=== PATIENT | male | born 1965 | race American Indian/Alaskan Native ===

== ENCOUNTER 2016-10-12 07:27 | Day surgery (SDC) | payer OTHER ==
[2016-07-26 11:26] VITALS: BMI 33.9
[~2016-10-12 07:27] MED LIST: ceFAZolin IV 1 gm in Dextrose 0 GM/0 ML BAG IVPB ONE
[2016-10-12] MEDS ORDERED: Lidocaine 2% w Epi 1:100,000 Inj IJ ONE (07:28)
[2016-10-12] MEDS ORDERED: EPINEPHrine 1:1000 Nasal Sol(30mL) ONE (07:28)
[2016-10-12] MEDS ORDERED: Acetaminophen-Codeine 300/30 mg Tab PO PRN (09:33)
[2016-10-12] MEDS ORDERED: Dextrose 5%/0.45% NS 1,000 ML IV SCH (09:45)
[2016-10-12] MEDS ORDERED: Lactated Ringer's 1,000 ML IV ONE (11:00)
[2016-10-12] MEDS ORDERED: Midazolam 2 MG/2 ML VIAL ONE (11:03)
[2016-10-12] MEDS ORDERED: Propofol 10 mg/ml Inj (20 ML) ONE ×3 (11:03→12:33)
[2016-10-12] MEDS ORDERED: ceFAZolin IV 2 gm in Dextrose 1 GM/50 ML BAG IVPB ONE (11:06)
[2016-10-12] MEDS ORDERED: Sodium Chloride 0.9% 1,000 ML IV ONE (12:25)
[2016-10-12] MEDS ORDERED: HYDROmorphone 0.5 mg/0.5 ml ISec IVP PRN (13:05)
[2016-10-12] MEDS ORDERED: Midazolam 2 MG/2 ML VIAL IVP ONE (13:06)
--- NOTE | 2016-10-12 14:02 | OP ---
PROCEDURE DATE: 10/12/2016 PREOPERATIVE DIAGNOSES: Deviated septum, enlarged turbinates, sinusitis, left chronic otitis media. POSTOPERATIVE DIAGNOSES: Deviated septum, enlarged turbinates, sinusitis, left chronic otitis media. PROCEDURE: Bilateral endoscopic maxillary antrostomy, bilateral endoscopic ethmoidectomy, bilateral endoscopic inferior turbinate reduction, septoplasty, left myringotomy tube. SIGNIFICANT FINDINGS: Deviated septum, enlarged turbinates, sinusitis, fluid noted behind TM on the left. DESCRIPTION OF PROCEDURE: The patient was brought in room, placed in a supine position. Anesthesia was initiated through ET tube. The patient was draped in the usual manner. The head was turned. Th e left ear was brought into view using operative microscope and ear speculum. Radial incision was ma de in the left anterior inferior quadrant. Tube was placed. Next, adrenaline-soaked pledgets were i nserted in the nasal cavity, remained there for at least 5 minutes, then removed. The patient was dr aped. The septum was injected with lidocaine with epinephrine on both sides. A Harvey's incision w as made on the left and a mucoperichondrial flap was raised. A vertical incision was made in the car tilage and a mucoperichondrial flap was raised on the other side. Deviated portion of the cartilage and bone were removed. A quilting suture was used to suture the 2 flaps together and close the incis ion. A 0-degree scope was inserted in the nasal cavity. The left inferior turbinate was reduced usi ng scissors going from an anterior to posterior, inferior to superior direction. Bleeding was contro lled using suction cautery. Next, the right inferior turbinate was reduced going from an inferior to superior, anterior to posterior direction and suction cautery was used to control the bleeding. Nex t, attention was turned to the left. The middle turbinate was injected with lidocaine with epinephri ne and medialized. The uncinate process was medialized and removed using forceps. A debrider was us ed to enter the ethmoid bulla inferomedially, going posterior to the basal lamella, then anteriorly a nd superiorly. Next, the basal lamella was entered. Posterior ethmoid cells were entered. Skull ba se was identified and followed anteriorly all the way to the area of the anterior ethmoid air cells. Curved suction was then used to locate the maxillary antrum, which was noted to be completely stenos ed and opened using forceps. Bleeding was controlled using adrenaline-soaked pledgets and suction ca utery. Attention was turned to the other side. The middle turbinate was medialized. The uncinate p rocess was medialized and removed. The ethmoid bulla was then entered inferomedially, going posterio r to the basal lamella, then anteriorly and superiorly until the ethmoid bulla was removed. The basa l lamella was entered. Posterior ethmoid cells were entered and opened. The skull base was identifi ed and followed anteriorly all the way to the area of the anterior ethmoid air cells. Curved suction was used to locate the maxillary antrum, which was noted to be completely stenosed and opened using forceps. Adrenaline-soaked pledgets and suction cautery were used to control the bleeding. Stents w ere placed. Splints were placed. The patient was taken off anesthesia and taken to recovery room in stable manner. Toney Hernandez MD cc: [id number] TT: 10/12/2016 14:01:35 en
[2016-10-12 14:08] VITALS: TEMP 97.5
[2016-10-12 14:17] VITALS: RESP 22
[2016-10-12 15:25] VITALS: O2SAT 98
[2016-10-12 15:26] VITALS: BP 139/79; PULSE 73
== END 2016-10-12 15:20 | disposition home or self-care (01) ==
LOC: C.SDS 07:27
PROVIDERS: ATTEND Otolaryngology
DX: J34.2 Deviated nasal septum (principal); J32.2 Chronic ethmoidal sinusitis; H66.12 Chronic tubotympanic suppurative otitis media, left ear; J34.3 Hypertrophy of nasal turbinates; E11.9 Type 2 diabetes mellitus without complications; I10 Essential (primary) hypertension; F17.200 Nicotine dependence, unspecified, uncomplicated
CPT/HCPCS: 30140; 30520; 31255; 31256; 69436; 82948; 88304; J0690; J2250; J2405; J2704; J3010; J7040; J7120

== ENCOUNTER 2017-02-23 08:48 | Day surgery (SDC) | payer OTHER ==
[2016-07-26 11:26] VITALS: BMI 33.9
[2017-02-23] MEDS ORDERED: Bupivacaine HCl 0.25% PF (10 ml) Inj ONE (10:37)
[2017-02-23] MEDS ORDERED: Iohexol 240 (50 ml) ONE (10:37)
[2017-02-23] MEDS ORDERED: MethylPREDNISolone Depo 40 mg/ml Inj ONE (11:05)
[2017-02-23 11:21] VITALS: RESP 16; TEMP 97.9
[2017-02-23 11:31] VITALS: BP 147/78; PULSE 69; O2SAT 95
--- NOTE | 2017-02-24 10:43 | RAD ---
PROCEDURE: Intraoperative Fluoroscopy. HISTORY: LUMBAR RADICULOPATHY FINDINGS: Fluoroscopic assistance was provided for L3 4 nerve root block.
== END 2017-02-23 11:10 | disposition home or self-care (01) ==
LOC: C.SDS 08:48
PROVIDERS: ATTEND Anesthesiology Pain Medicine
DX: M51.16 Intervertebral disc disorders with radiculopathy, lumbar region (principal)
CPT/HCPCS: 62323; 76000; 82948; Q9966

== ENCOUNTER 2017-04-20 06:11 | Day surgery (SDC) | payer OTHER ==
[2016-07-26 11:26] VITALS: BMI 33.9
[2017-04-20 06:52] VITALS: O2SAT 97
[2017-04-20] MEDS: MethylPREDNISolone Depo 40 mg/ml Inj ONE ×2 (07:56→08:00)
[2017-04-20] MEDS: Iohexol 240 (50 ml) ONE ×2 (07:56→08:00)
[2017-04-20] MEDS: Bupivacaine HCl 0.25% PF (10 ml) Inj ONE ×2 (07:56→07:57)
[2017-04-20 08:33] VITALS: BP 127/74; PULSE 63; RESP 18; TEMP 97.7
--- NOTE | 2017-04-20 12:54 | OP ---
PREOPERATIVE DIAGNOSES: 1. Lumbar radiculopathy. 2. Lumbar herniated disc. 3. Myalgias. POSTOPERATIVE DIAGNOSES: 1. Lumbar radiculopathy. 2. Lumbar herniated disc. 3. Myalgias. PROCEDURE: 1. Selective nerve root block level of L4-L5, right and left side. 2. Epidurogram. 3. Trigger point injections. X-RAY: [id number], Fluoroscopy of the spine. ANESTHESIA: MAC/local. SURGEON: Ranulfo Iglesias MD COMPLICATIONS: None. BLOOD LOSS: 2 mL. INDICATION: This patient has intractable back and leg pain that is unresponsive to conservative management. The pain is adversely affecting quality of life and activities of daily living. TECHNIQUE: After comprehensive informed consent was obtained, the risks of the procedure explained and questions answered. The patient understands fully the risks are, but not limited to possible bleeding, infection, headache, nervous tissue injury and worsening of their pain. The patient was placed prone on the operating table in a comfortable position. Confirmation of the procedure to be performed was obtained from the patient. The skin overlying the area to be injected was cleaned in a strict sterile fashion using chlorhexidine. Sterile drapes were placed around the area to be injected. Using the C-arm in the anteroposterior view, the levels to be injected were identified under fluoroscope. Then, the C-arm was obliqued in the coronal plane until the facet joint was delineated approximately 25 degrees. The area to be injected was superficially anesthetized with 3 mL of 1% lidocaine using a 27-gauge, 1.25-inch needle. Under fluoroscopic guidance, a 22-guage, 3.5-inch short bevel needle was advanced and directed toward the tip of the pars. In the lateral view, ideal placement of the needle was obtained with the tip in the cephalodorsal corner of the neural foramen. In the anteroposterior plane and under continuous fluoroscopy, 1 mLof non-ionic, water-soluble contrast (Omnipaque 180) was injected to visualize the nerve root and make sure there was no vascular uptake. After negative aspiration for blood, 1 mL of preservative-free 0.5% Marcaine in 80 mg of Depo-Medrol was slowly injected at each level. The patient experienced no painful paresthesia during the injection. Epidurogram: The patient underwent transforaminal epidural steroid injection today. The epidural was observed at the level of L4-L5 under AP and lateral fluoroscopic guidance. A 2 mL of Omnipaque 200 contrast was injected that evenly spread from level L3 to S1 level with posterior-anterior dye spread bilaterally at level of L4-L5 and L5-S1. There appeared to be a moderate degree spondylosis at level of L4-L5 and moderate degree of spondylosis at the level of L5-S1 with disc protrusion at the level of L4-L5. The intervertebral disc height at the level of L4-L5 was slightly less than normal and intervertebral disc height at the level of L5-S1 was well maintained. The neural foramen appeared to be patent. Good epidural dye containment from L3-S1 with intervertebral disc protrusion at the level of L4-L5, maintaining less than normal intervertebral disc height at level L4-L5. Spondylosis noted at the level of L4 through S1. Copies of the images are on file. Trigger Point Injections: A 27-gauge needle was used to inject trigger piont areas in paralumbar muscles, parathoracic muscles, and upper gluteal muscles. Needle was redirected to sciatic nerve branches. Total volume of 10 mL of 0.25% Marcaine. Intermittent aspiration was done throughout with no heme or CSF aspirated throughout. Patient tolerated procedure well. DISPOSITION: Patient was taken to the recovery room in stable condition. Patient was given instructions to follow up in two weeks and was discharged in stable condition. No events or complications. Ranulfo Iglesias MD
--- NOTE | 2017-04-20 15:07 | RAD ---
PROCEDURE: Intraoperative Fluoroscopy. HISTORY: LUMBAR RADICULOPATHY FINDINGS: Fluoroscopic assistance was provided for lumbar epidural.. Please fluoroscopic time (continuous mode) utilized during the procedure: 19.0 seconds. Total exam DLP: (mGy): 6.65
== END 2017-04-20 08:42 | disposition home or self-care (01) ==
LOC: C.SDS 06:11
PROVIDERS: ATTEND Anesthesiology Pain Medicine
DX: M51.16 Intervertebral disc disorders with radiculopathy, lumbar region (principal); M79.1 Myalgia
CPT/HCPCS: 20553; 62322; 64520; 82948; J1030; Q9966

== ENCOUNTER 2017-08-24 06:33 | Day surgery (SDC) | payer OTHER ==
[2017-08-22 13:26] VITALS: BMI 32.5
[2017-08-24 07:10] VITALS: O2SAT 99
[2017-08-24] MEDS ORDERED: MethylPREDNISolone Depo 40 mg/ml Inj ONE (07:24)
[2017-08-24] MEDS ORDERED: Iohexol 240 (50 ml) ONE (07:25)
[2017-08-24] MEDS ORDERED: Lidocaine Hydrochloride 0 ML INJ ONE (07:25)
[2017-08-24] MEDS ORDERED: Bupivacaine 0.25% Inj(30mL) ONE (08:17)
[2017-08-24 12:47] VITALS: BP 144/85; PULSE 60; RESP 15; TEMP 97
--- NOTE | 2017-08-24 19:58 | OP ---
PROCEDURE DATE: PREOPERATIVE DIAGNOSES: 1. Lumbar spondylosis without myelopathy. 2. Myalgias. POSTOPERATIVE DIAGNOSES: 1. Lumbar spondylosis without myelopathy. 2. Myalgias. PROCEDURE: 1. Bilateral L3-L4, L4-L5, L5-S1 medial branch blocks. 2. Trigger point injections. X-RAY: [id number], fluoroscopy of the spine. ANESTHESIA: MAC/local. SURGEON: Ranulfo Iglesias MD COMPLICATIONS: None. BLOOD LOSS: 2 mL. INDICATION: On physical exam, this patient's pain was made worse by side bending toward the affected side or extending the spine (backward bending). The patient's back will generally feel stiff in the morning, and prolonged inactivity such as sitting, standing for prolonged periods causes the axial pain to refer to the mid lower back. This pain is intractable and unresponsive to conservative management. The pain is adversely affecting quality of life and activities of daily living. TECHNIQUE: After comprehensive informed consent was obtained, the risks of the procedure explained and questions answered. The patient was placed prone on the operating table in a comfortable position. Confirmation of the procedure to be performed was obtained from the patient. The skin overlying the area to be injected was confirmed and cleaned in a strict sterile fashion using chlorhexidine. Sterile drape was placed around the area to be injected. The area to be injected was superficially anesthetized with 1 mL of 1% lidocaine using a 27-gauge, 1.25-inch needle at each level noted above. Under fluoroscopic guidance, a curved 22-gauge, 3.5-inch spinal needle was advanced until the tip of the needle was ventro-medial to position the tip adjacent to the articular pillar, in contact with bone midway between the zygapophyseal joints above and below. The patient experienced no paresthesia during needle placement. The bone was contacted, and the C-arm was rotated laterally to confirm proper needle placement. The patient experienced no paresthesias in the upper extremities during needle placement. After negative aspiration for blood, 0.5 mL of non-ionic contrast was injected to outline the medial branch nerve. Then, 1 mL of a mixture of 0.25% Marcaine and 80 mg of Depo-Medrol was slowly injected at each level. The needle was removed, and a Band-Aid was placed over the puncture site. The fluoroscopic image was stored for the medical record. Trigger Point Injections: A 27-gauge needle was used to inject trigger point areas in paralumbar muscles, parathoracic muscles, and upper gluteal muscles. Needle was redirected to sciatic nerve branches. Total volume of 12 mL of 0.25% Marcaine mixed with 40 mg Kenalog. Intermittent aspiration was done throughout with no heme or CSF aspirated throughout. Patient tolerated procedure well. ASSESSMENT: Upon discharge, the patient noted more than 80% relief in the affected painful area. The patient was given a pain diary to utilize over the next 4 hours while performing activities that are normally aggravating. This will provide a quantitative value of how much of the pain is related to osteoarthritis of the facets. The patient understands that this block is diagnostic and temporary. If there is significant pain relief during the next 4 hours, we will schedule for radiofrequency ablation of the offending pain fibers around the affected facet joints to help provide long-term relief. DISPOSITION: Patient was given instructions to follow up in two weeks and was discharged in stable condition. No events or complications. Ranulfo Iglesias MD
--- NOTE | 2017-08-25 08:28 | RAD ---
PROCEDURE: Intraoperative Fluoroscopy. HISTORY: LUMBAR SPONDYLOSIS FINDINGS: Fluoroscopic assistance was provided for multilevel lumbar facet nerve blocks. Please refer to the operative report from [facility].
== END 2017-08-24 09:29 | disposition home or self-care (01) ==
LOC: C.SDS 06:33
PROVIDERS: ATTEND Anesthesiology Pain Medicine
DX: M47.816 Spondylosis without myelopathy or radiculopathy, lumbar region (principal); E11.9 Type 2 diabetes mellitus without complications; I10 Essential (primary) hypertension; Z85.528 Personal history of other malignant neoplasm of kidney
CPT/HCPCS: 20553; 64493; 64494; 64495; 82948; J1030